=== PATIENT | female | born 1955 | race Caucasian/White ===

== ENCOUNTER 2017-01-26 05:32 | Emergency (ER) | payer OTHER ==
[2017-01-26 05:58] LABS: BILIRUBIN,URINE NEGATIVE (NEGATIVE)
[2017-01-26 06:00] LABS: UA w/ MICROSCOPIC CHARGE YES
[2017-01-26 06:05] LABS: BASOPHILS % (AUTO) 0.5 %; EOSINOPHILS % (AUTO) 0.8 %; HCT - HEMATOCRIT 39.6 % (37.0-47.0); HGB - HEMOGLOBIN 13.1 g/dL (12.0-16.0); LYMPHOCYTES # (AUTO) 1.6 10^3/uL (1.5-3.5); LYMPHOCYTES % (AUTO) 25.2 %; MEAN CORPUSCULAR HEMOGLOBIN 31.6 pg (27.0-31.0); MEAN CORPUSCULAR HGB CONC 33.2 g/dL (32.0-36.0); MEAN CORPUSCULAR VOLUME 95.3 fL (81.0-99.0); MONOCYTES # (AUTO) 0.6 10^3/uL (0.0-1.0); MONOCYTES % (AUTO) 9.6 %; NEUTROPHILS # (AUTO) 4.1 10^3/uL (1.5-6.6); NEUTROPHILS % (AUTO) 63.9 %; RED BLOOD COUNT 4.16 10^6/uL (4.20-5.40); RED CELL DISTRIBUTION WIDTH 14.4 % (12.0-15.0); UNCORRECTED WHITE BLOOD COUNT 6.4 x10^3/uL; WHITE BLOOD COUNT 6.4 x10^3/uL (4.8-10.8)
[2017-01-26 06:07] LABS: UR CULTURE IF IND NOT INDICATED; WBC,URINE 0-3 /HPF (0-5)
[2017-01-26] MEDS ORDERED: MORPHINE 2 MG/ML SYRINGE IVP STA ×2 (06:12→06:31)
[2017-01-26 06:13] LABS: ALBUMIN/GLOBULIN RATIO 1.6 (1.0-2.2); BILIRUBIN,TOTAL 0.5 mg/dL (0.2-1.0); CALCIUM 9.4 mg/dL (8.5-10.3); CREATININE 0.8 mg/dL (0.4-1.0); POTASSIUM 4.2 mmol/L (3.5-5.0); TOTAL PROTEIN 6.2 g/dL (6.7-8.2)
[2017-01-26] MEDS ORDERED: ONDANSETRON 4 MG/2 ML VIAL IVP STA ×5 (06:29→14:27)
[2017-01-26] MEDS ORDERED: SODIUM CHLORIDE 0.9% 1,000 ML IV ONE ×4 (06:29→19:16)
[2017-01-26] MEDS ORDERED: MORPHINE 2 MG/ML SYRINGE ONE (06:40)
[2017-01-26] MEDS ORDERED: ONDANSETRON 4 MG/2 ML VIAL ONE ×5 (06:40→14:28)
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
[2017-01-26] MEDS ORDERED: HYDROmorphone 1 MG/ML SYRINGE IVP STA ×4 (07:16→14:26)
[2017-01-26] MEDS ORDERED: HYDROmorphone 1 MG/ML SYRINGE ONE ×4 (07:32→14:28)
--- NOTE | 2017-01-26 08:29 | Ultrasound Preliminary Report ---
Exam: US Abdomen Limited IMPRESSION: 1. Cholelithiasis. 2. Borderline gallbladder wall thickening without pericholecystic fluid. Negative sonographic Taylor' s sign but equivocal as patient is on pain medication. Early cholecystitis possible. 3. Fatty liver infiltration. [facility] SITE ID: [id number]
--- NOTE | 2017-01-26 08:32 | Ultrasound Report ---
EXAM: ABDOMEN ULTRASOUND LIMITED, RUQ EXAM DATE: 01/26/2017 08:05 AM. CLINICAL HISTORY: Epigastric pain/hx of gallstones. COMPARISON: Prior ultrasound 02/17/2016. TECHNIQUE: Real-time scanning was performed with static images obtained. FINDINGS: Liver: Increased in echogenicity. No focal hepatic lesion. 18.5 cm. Main portal vein flow: Hepatopeta l. Gallbladder: Multiple shadowing gallstones measuring up to 1.9 cm diameter. Borderline wall thickenin g 3.1 mm. No pericholecystic fluid. Patient is not tender but medicated. Biliary System: CBD measures 8.2 mm. No intrahepatic or extrahepatic ductal dilatation. Other: None. IMPRESSION: 1. Cholelithiasis. 2. Borderline gallbladder wall thickening without pericholecystic fluid. Negative sonographic Taylor' s sign but equivocal as patient is on pain medication. Early cholecystitis possible. 3. Fatty liver infiltration. [facility] Referring Provider Line: [phone] SITE ID: [id number]
[2017-01-26] MEDS ORDERED: cefOXitin 1 GM in SODIUM CHLORIDE 0.9% MINIBAG 100 ML IV STA ×2 (09:26→18:09)
--- NOTE | 2017-01-26 09:26 | ED Physician Documentation ---
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 HEENT: Cataracts - Present Medications Home Medications: Ambulatory Orders Medication Instructions Recorded Confirmed Multivitamin [Theragran] 1 tab PO DAILY 02/17/16 01/26/17 Ondansetron [Zofran] 4 - 8 mg ORAL DAILY PRN 02/17/16 01/26/17 Aspirin [Adult Low Dose Aspirin EC] 81 mg PO DAILY 01/26/17 01/26/17 Lenalidomide [Revlimid] 10 mg PO DAILY 01/26/17 01/26/17 Potassium Chloride 20 meq PO DAILY 01/26/17 01/26/17 Sulfamethoxazole/Trimethoprim 1 tab PO DAILY 01/26/17 01/26/17 [Sulfamethoxazole-Tmp Ds Tablet] Valacyclovir HCl [Valacyclovir] 500 mg PO BID 01/26/17 01/26/17 - Allergies Allergies/Adverse Reactions: Allergies Allergy/AdvReac Type Severity Reaction Status Date / Time No Known Drug Allergies Allergy Verified 01/26/17 05:38 - Social History Does the pt smoke?: No Smoking Status: Never smoker Does the pt drink ETOH?: No Does the pt have substance abuse?: No - Immunizations Immunizations are current?: Yes - POLST Patient has POLST: No Results - Vitals Vitals: Vital Signs - 24 hr 01/26/17 01/26/17 01/26/17 05:35 06:09 07:02 Temperature 36.8 C Heart Rate 72 68 57 L Respiratory 20 18 18 Rate Blood Pressure 185/80 H 159/87 H 142/66 H O2 Saturation 100 96 97 01/26/17 01/26/17 01/26/17 10:34 12:35 12:50 Temperature Heart Rate 65 74 77 Respiratory 12 19 20 Rate Blood Pressure 153/79 H 139/89 H 141/78 H O2 Saturation 96 97 100 01/26/17 01/26/17 01/26/17 14:35 15:27 17:20 Temperature Heart Rate 88 64 72 Respiratory 20 12 18 Rate Blood Pressure 142/73 H 146/71 H 139/77 H O2 Saturation 95 99 98 01/26/17 01/26/17 01/26/17 18:25 19:16 19:23 Temperature 37.6 C H 36.7 C Heart Rate 93 76 Respiratory 20 18 Rate Blood Pressure 130/72 138/69 H O2 Saturation 98 99 01/26/17 20:29 Temperature Heart Rate 84 Respiratory 18 Rate Blood Pressure 125/62 O2 Saturation 97 Oxygen O2 Source Room air - Tele (time rhythm occurred) 1617 Telemetry / rhythm strip: Other (no prolonged QT from zofran) - Labs Labs: Laboratory Tests 01/26/17 01/26/17 01/26/17 05:50 05:50 05:52 WBC 6.4 RBC 4.16 L Hgb 13.1 Hct 39.6 MCV 95.3 MCH 31.6 H MCHC 33.2 RDW 14.4 Plt Count 202 MPV 7.0 L Neut # 4.1 Lymph # 1.6 [place] # 0.6 Eos # 0.0 Baso # 0.0 Absolute Nucleated RBC 0.00 Nucleated RBCs 0.0 Sodium Potassium Chloride Carbon Dioxide Anion Gap BUN Creatinine Estimated GFR (MDRD) Glucose Calcium Total Bilirubin AST ALT Alkaline Phosphatase Troponin I < 0.04 Total Protein Albumin Globulin Albumin/Globulin Ratio Lipase Urine Color YELLOW Urine Clarity CLEAR Urine pH 6.0 Ur Specific [place] 1.025 Urine Protein NEGATIVE Urine Glucose (UA) NEGATIVE Urine Ketones NEGATIVE Urine Occult Blood MODERATE H Urine Nitrite NEGATIVE Urine Bilirubin NEGATIVE Urine Urobilinogen 0.2 (NORMAL) Ur Leukocyte Esterase NEGATIVE Urine RBC 6-10 H Urine WBC 0-3 Ur Squamous Epith Cells FEW Squamous Urine Bacteria Rare Ur Microscopic Review INDICATED Urine Culture Comments NOT INDICATED 01/26/17 05:52 WBC RBC Hgb Hct MCV MCH MCHC RDW Plt Count MPV Neut # Lymph # [place] # Eos # Baso # Absolute Nucleated RBC Nucleated RBCs Sodium 140 Potassium 4.2 Chloride 108 Carbon Dioxide 24 Anion Gap 8.0 BUN 17 Creatinine 0.8 Estimated GFR (MDRD) 73 L Glucose 133 H Calcium 9.4 Total Bilirubin 0.5 AST 29 ALT 32 Alkaline Phosphatase 110 Troponin I Total Protein 6.2 L Albumin 3.8 Globulin 2.4 Albumin/Globulin Ratio 1.6 Lipase 34 Urine Color Urine Clarity Urine pH Ur Specific [place] Urine Protein Urine Glucose (UA) Urine Ketones Urine Occult Blood Urine Nitrite Urine Bilirubin Urine Urobilinogen Ur Leukocyte Esterase Urine RBC Urine WBC Ur Squamous Epith Cells Urine Bacteria Ur Microscopic Review Urine Culture Comments PD MEDICAL DECISION MAKING - ED course ED course: assumed care from naturalization examiner 730 AM, 61 female seen by naturalization examiner approx 5 m s/p stem cell transplant for multiple myeloma immunocompromised s/p transplant and on prophylactic bactrim and valtrex as well as revlimid - not neutropenic known hx gallstones to ER with epigastric pain nausea - had vomiting in ER not [employer]IST no fever labs normal and sono pending and turnover labs nl LFTs and WBC (but immunocompromised) sono shows early cholecystitis pt still having persistent RUQ pain and nausea, on my exam + murphys started antibiotics cefoxitin, pain controlled with dilaudid, got fluid bolus now maintenance d/w [facility] and [facility] and they will accept pt in transfer [facility] advised bed would be available at 5 PM at 830 PM still awaiting bed availability - I called [facility] transfer center myself and am advised heme on service is capped for the night and pt cannot be transferred until tomorrow soonest and that is not guaranteed either pt has been given her second dose of cefoxitin, dilaudid and zofran/phenergan for NV, checked QT after several doses zofran and not prolonged, remains stable went to update pt, she is starting to feel better, no sig pain at rest though still cleaner tube with deep palpation do not think continuing to stay in the ER being exposed top other sick patients is in pt best interest either will dc with oral antibiotics and have pt come back to see me at noon tomorrow for a recheck pt is agreeable to this plan she will take her usual daily meds when she gets home Departure - Departure Disposition: Home, Self Care Clinical Impression: Cholecystitis, Stem cells transplant status Condition: Fair Instructions: ED Gallbladder Infec Conf Comments: Take the next dose of augmentin tomorrow morning. Stay on a clear liquid diet overnight May take zofran 4 mg every 6 hours if needed for vomiting. Recommend no strong pain medications which might mask worsening symptoms Please come back and see me in the ER tomorrow at noon for a recheck Return to the ER sooner if worse in any way
[2017-01-26] MEDS ORDERED: PROMETHAZINE INJ 12.5 MG in SODIUM CHLORIDE 0.9% 50 ML IV STA (16:04)
[2017-01-26] MEDS ORDERED: PROMETHAZINE 25 MG/1 ML VIAL ONE (16:15)
[2017-01-26] MEDS ORDERED: AMOX/CLAV 875 MG/125 MG TABLET PO STA (20:58)
[2017-01-26] MEDS ORDERED: ONDANSETRON ODT 4 MG Prepack 2 TL PRN (21:09)
[2017-01-26] MEDS ORDERED: ONDANSETRON ODT 4 MG Prepack 2 TL ONE (21:12)
[2017-01-26] MEDS ORDERED: AMOX/CLAV 875 MG/125 MG TABLET PO ONE (21:12)
[2017-01-26 21:18] VITALS: BP 136/75
[2017-01-27] MEDS ORDERED: cefOXitin 1 GM in SODIUM CHLORIDE 0.9% MINIBAG 100 ML IV SCH (02:00)
== END 2017-01-26 21:46 | disposition home or self-care (01) ==
LOC: ED 05:32
DX: K81.9 Cholecystitis, unspecified (principal); C90.00 Multiple myeloma not having achieved remission; Z79.82 Long term (current) use of aspirin
CPT/HCPCS: 36415; 76705; 80053; 81001; 83690; 84484; 85025; 96374; 96375; 96376; 99285; A9270; J1170; 81003; 87086

== ENCOUNTER 2017-01-27 12:02 | Inpatient (IN) | payer OTHER ==
[2017-01-27] MEDS ORDERED: cefOXitin 1 GM in SODIUM CHLORIDE 0.9% MINIBAG 100 ML IV STA (12:49)
[2017-01-27] MEDS ORDERED: SODIUM CHLORIDE 0.9% 1,000 ML IV ONE (12:49)
[2017-01-27] MEDS ORDERED: ACETAMINOPHEN 1,000 MG/100 ML 100 ML IV STA (12:50)
[2017-01-27] MEDS ORDERED: ACETAMINOPHEN 1,000 MG/100 ML 100 ML IV ONE (13:12)
[2017-01-27 13:36] LABS: BASOPHILS % (AUTO) 0.2 %; EOSINOPHILS % (AUTO) 0.2 %; HCT - HEMATOCRIT 34.6 % (37.0-47.0); HGB - HEMOGLOBIN 11.8 g/dL (12.0-16.0); LYMPHOCYTES # (AUTO) 1.5 10^3/uL (1.5-3.5); LYMPHOCYTES % (AUTO) 18.2 %; MEAN CORPUSCULAR VOLUME 94.2 fL (81.0-99.0); MONOCYTES # (AUTO) 1.3 10^3/uL (0.0-1.0); MONOCYTES % (AUTO) 15.9 %; NEUTROPHILS # (AUTO) 5.3 10^3/uL (1.5-6.6); NEUTROPHILS % (AUTO) 65.5 %; RED BLOOD COUNT 3.67 10^6/uL (4.20-5.40); RED CELL DISTRIBUTION WIDTH 14.2 % (12.0-15.0); UNCORRECTED WHITE BLOOD COUNT 8.1 x10^3/uL; WHITE BLOOD COUNT 8.1 x10^3/uL (4.8-10.8)
[2017-01-27 13:37] LABS: BILIRUBIN,URINE NEGATIVE (NEGATIVE)
[2017-01-27 13:38] LABS: UA w/ MICROSCOPIC CHARGE YES
--- NOTE | 2017-01-27 13:47 | ED Physician Documentation ---
History of Present Illness - Stated complaint Stated Complaint: RE-EVAL - Chief complaint Chief Complaint: Fever - Additonal information Additional information: hx from pt pt seen by me yesterday and returns today for recheck as requested 61 f, 5 m s/p stem cell transplant for multiple myeloma, not on anti-rejection meds but still with suppressed immune system and on prophylactic bactrin and valtrex as well as revlimid known gallstones night of 01/25 after having potato salad for lunch and pizza for dinner she developed RUQ pain so came to ER labs were nl sono showed GB wall thickening s pericholcystic fluid and nl ducts pt was given cefoxitin IV due to pt being a stem cell transplant pt and immunocompromised attempted to transfer pt to [facility], [facility] oncology team accepted the pt but no bed was available and then the service "capped" so the pt could not be transferred a surgical infection in a transplant pt would not typically be admitted to this [facility] pt was feeling better after IVF and 2 doses of q8hr cefoxitin d/w pt remaining in the ER indefinitely vs going home and returning to see me for a recheck in approx 12 hr and we felt she would be less likely to be exposed to other infections at home than in the ER and so agreed on plan to dc for remainder of night and then return to see me, pt given augmentin q12 to take at home which she did she returns as planned and has gotten worse, abd pain is better but not gone, she is less nauseated but she had a fever of 103+ and generally feels ill per transfer [facility] still has no inpt beds for this pt pt and family have been in contact with Dr Kuldeep Toro cell , pager and he suggests she be transferred to their ([facility] and / or [facility]) ER Review of Systems Constitutional: reports: Fever, Chills, Myalgias Cardiac: denies: Chest pain / pressure Respiratory: denies: Dyspnea, Cough GI: reports: Abdominal Pain, Nausea, Diarrhea (X 1 this Am). 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 HEENT: Cataracts - Present Medications Home Medications: Ambulatory Orders Medication Instructions Recorded Confirmed Multivitamin [Theragran] 1 tab PO DAILY 02/17/16 01/27/17 Ondansetron [Zofran] 4 - 8 mg ORAL DAILY PRN 02/17/16 01/27/17 Aspirin [Adult Low Dose Aspirin EC] 81 mg PO DAILY 01/26/17 01/27/17 Lenalidomide [Revlimid] 10 mg PO DAILY 01/26/17 01/27/17 Potassium Chloride 20 meq PO DAILYWM 01/26/17 01/27/17 Valacyclovir HCl [Valacyclovir] 500 mg PO BID 01/26/17 01/27/17 Sulfamethoxazole/Trimethoprim 1 tab PO DAILY 01/27/17 01/27/17 [Sulfamethoxazole-Tmp Ss Tablet] - Allergies Allergies/Adverse Reactions: Allergies Allergy/AdvReac Type Severity Reaction Status Date / Time No Known Drug Allergies Allergy Verified 01/26/17 05:38 - Social History Does the pt smoke?: No Smoking Status: Never smoker Does the pt drink ETOH?: No Does the pt have substance abuse?: No - Immunizations Immunizations are current?: Yes - POLST Patient has POLST: No PD ED PE NORMAL - Vitals Vital signs reviewed: Yes - General General: Alert and oriented X 3 - HEENT HEENT: PERRL - Neck Neck: Supple, no meningeal sign - Cardiac Cardiac: RRR - Respiratory Respiratory: No respiratory distress, Clear bilaterally - Abdomen Abdomen: Soft, Other (TTP RUQ + murphys) - Derm Derm: Normal color - Extremities Extremities: No deformity - Neuro Neuro: Alert and oriented X 3 - Psych Psych: Normal mood Results - Vitals Vitals: Vital Signs - 24 hr 01/27/17 01/27/17 01/27/17 12:05 12:26 14:23 Temperature 37.5 C 37.8 C H 37.5 C Heart Rate 92 89 Respiratory 16 18 Rate Blood Pressure 123/71 123/54 L O2 Saturation 96 96 Oxygen O2 Source Room air - Labs Labs: Laboratory Tests 01/27/17 01/27/17 01/27/17 13:11 13:11 13:11 WBC 8.1 RBC 3.67 L Hgb 11.8 L Hct 34.6 L MCV 94.2 MCH 32.0 H MCHC 34.0 RDW 14.2 Plt Count 180 MPV 7.0 L Neut # 5.3 Lymph # 1.5 [place] # 1.3 H Eos # 0.0 Baso # 0.0 Absolute Nucleated RBC 0.00 Nucleated RBCs 0.0 Sodium 135 Potassium 3.4 L Chloride 104 Carbon Dioxide 25 Anion Gap 6.0 BUN 13 Creatinine 1.0 Estimated GFR (MDRD) 56 L Glucose 111 H Lactic Acid 1.1 Calcium 8.9 Total Bilirubin 0.6 AST 25 ALT 28 Alkaline Phosphatase 88 Total Protein 5.9 L Albumin 3.5 Globulin 2.4 Albumin/Globulin Ratio 1.5 Lipase 25 Urine Color Urine Clarity Urine pH Ur Specific [place] Urine Protein Urine Glucose (UA) Urine Ketones Urine Occult Blood Urine Nitrite Urine Bilirubin Urine Urobilinogen Ur Leukocyte Esterase Urine RBC Urine WBC Ur Squamous Epith Cells Urine Bacteria Ur Microscopic Review Urine Culture Comments 01/27/17 13:30 WBC RBC Hgb Hct MCV MCH MCHC RDW Plt Count MPV Neut # Lymph # [place] # Eos # Baso # Absolute Nucleated RBC Nucleated RBCs Sodium Potassium Chloride Carbon Dioxide Anion Gap BUN Creatinine Estimated GFR (MDRD) Glucose Lactic Acid Calcium Total Bilirubin AST ALT Alkaline Phosphatase Total Protein Albumin Globulin Albumin/Globulin Ratio Lipase Urine Color YELLOW Urine Clarity CLEAR Urine pH 7.0 Ur Specific [place] 1.015 Urine Protein NEGATIVE Urine Glucose (UA) NEGATIVE Urine Ketones NEGATIVE Urine Occult Blood MODERATE H Urine Nitrite NEGATIVE Urine Bilirubin NEGATIVE Urine Urobilinogen 0.2 (NORMAL) Ur Leukocyte Esterase NEGATIVE Urine RBC 0-5 Urine WBC 0-3 Ur Squamous Epith Cells RARE Squamous Urine Bacteria Rare Ur Microscopic Review INDICATED Urine Culture Comments NOT INDICATED PD MEDICAL DECISION MAKING - ED course ED course: spoke to [facility] transfer center [facility] Flores and onc air support control officer Dr Belle and there are still no beds at [facility] and no anticipation of beds becoming available and does not feel it would be appropriate to transfer pt to their ER either and recommend that pt be admitted to for ongoing IVF and IV antibiotics and monitoring and promise that the pt will remain in line to get a bed when available, oncology advises that she had an autologous transplant and is not really immunosupressed and the prophylactic bactrim and valtrex and standard for a year and not specific to this pt spoke to hospitalist Dr Nunn and aurgeon Dr Phillips and they agree to admit Departure - Departure Disposition: 66 [facility] DC/Xfer Clinical Impression: Stem cells transplant status, Cholecystitis Condition: Fair Discharge Date/Time: 01/27/17 16:08
[2017-01-27 14:00] LABS: UR CULTURE IF IND NOT INDICATED; WBC,URINE 0-3 /HPF (0-5)
[2017-01-27 14:26] LABS: ALBUMIN/GLOBULIN RATIO 1.5 (1.0-2.2); BILIRUBIN,TOTAL 0.6 mg/dL (0.2-1.0); CALCIUM 8.9 mg/dL (8.5-10.3); POTASSIUM 3.4 mmol/L (3.5-5.0); TOTAL PROTEIN 5.9 g/dL (6.7-8.2)
[2017-01-27] MEDS ORDERED: HYDROmorphone 1 MG/ML SYRINGE IVP PRN (14:55)
[2017-01-27] MEDS ORDERED: SODIUM CHLORIDE FLUSH 0.9% 10 ML SYRINGE IVP PRN (14:55)
[2017-01-27] MEDS ORDERED: ONDANSETRON 4 MG/2 ML VIAL IVP PRN (14:55)
[2017-01-27] MEDS ORDERED: NS W/20 MEQ KCL 1,000 ML IV SCH (17:00)
[2017-01-27 19:56] VITALS: BP 128/76
[2017-01-27] MEDS ORDERED: valACYclovir 500 MG TABLET PO SCH (21:00)
[2017-01-27] MEDS ORDERED: CEFEPIME 2 GM in SODIUM CHLORIDE 0.9% MINIBAG 100 ML IV SCH (21:00)
[2017-01-27] MEDS ORDERED: SODIUM CHLORIDE FLUSH 0.9% 10 ML SYRINGE IVP SCH (22:00)
--- NOTE | 2017-01-28 07:45 | HISTORY & PHYSICAL EXAMINATION ---
DATE OF ADMISSION: 01/27/2017 PRIMARY CARE PROVIDER: Simeon Sheppard MD. CHIEF COMPLAINT: Abdominal pain pain with fevers. IDENTIFYING INFORMATION: The patient is the primary source of history. Her , Gorge, is present, and gives some additional information. They appear cogent, consistent and thorough. Additional information is obtained from the handoff from Dr. Jones, the emergency department physician who has seen this patient twice, as well as the personal review of past medical records and data collected during this visit which are summarized below. HISTORY OF PRESENT ILLNESS: The patient had some abdominal pain the day before she came in, went through the night and five in the morning according to her she said "let's go to the hospital." The patient had known cholelithiasis. She was seen in the hospital emergency department, evaluated by Dr. Jones and found to have acute cholecystitis. The patient was given cefoxitin twice while waiting for a transfer to which did not occur. She was sent home and brought back today, had fevers last night and was reevaluated today. Says she does not have the pain that she had yesterday, but she had really bad fevers up to 103.5 in the emergency department. REVIEW OF SYSTEMS: She has had fevers, chills, muscle aches. She is not having any chest pain, no shortness of breath, no cough, sore throat negative. She has had nausea and diarrhea. No vomiting. No frequency, urgency, or dysuria. The rest of the complete review of systems is negative. PAST MEDICAL HISTORY AND SURGICAL HISTORY: She has had pneumonia in the past. She has also had depression and she had multiple myeloma diagnosed at [facility] since that. She has had degenerative joint disease, lumbar spine and back surgery in July of 2005. The patient has mild tricuspid regurgitation, mild mitral regurgitation, and also mild pulmonary hypertension. She has had cataract surgery and hysterectomy. PERSONAL SOCIAL HISTORY: She has been 3 times, does have children with her current of 30 years. The patient never smoked, drank alcohol very rarely and no illicit drugs. FAMILY HISTORY: Positive for mother of breast cancer, father from old age. There is diabetes in the family. ALLERGIES: NO DRUG ALLERGIES. MEDICATIONS: 1. Multivitamin. 2. Zofran. 3. Aspirin 81 mg daily. 4. Revlimid. 5. Potassium 20 meq daily. 6. Septra DS 1 a day. 7. Valacyclovir 500 mg twice a day. PHYSICAL EXAMINATION: VITAL SIGNS: She has a temperature of 37.8, pulse 89, respirations 18. Her blood pressure is 123/54, O2 saturation is 96% on room air. The patient appears stated age in no acute distress at this time. HEENT: Eyes: EOMs within normal limits. PERRLA, nonicteric. Mouth and throat: Dry mucous membranes. A lot of dental work. No signs of thrush or other pathology in the mouth, tongue, oropharynx. NECK: The skin is sweaty, but no lymphadenopathy. No thyromegaly. No bruits. No JVD. CHEST: Chest wall nontender, symmetric. No breast exam done. HEART: Sinus rhythm. A 1/6 murmur left sternal border radiating in and out to the apex. LUNGS: Clear. Good air movement anterior and posterior. ABDOMEN: Nontender, bowel sounds are present. No hepatosplenomegaly appreciated. There is a thick abdominal wall. RECTAL/GENITAL: None done. EXTREMITIES: Vascular exam: She has equal pulses 1+ down to the dorsal pedis. No edema. No cyanosis. SKIN: No suspicious lesions or dermatitis. NEURO: Cognition intact. Cranial nerves intact. Motor intact. DIAGNOSTICS: White count 8.6, 11.8 and 34. The patient's platelets are 180. Lactate is 1.1. She has negative urine with a specific gravity of 1.015. The patient's chemistry panel, white count was 6.4 with 13 and 39 hemoglobin and hematocrit. Her sodium today is 135, potassium 3.5, chloride 104, CO2 25, BUN 13 , creatinine 1.0, glucose is 111. Lactate is 1.1. Bilirubin 0.6, normal liver enzymes. Lipase is normal at 25. The patient's ultrasound from 01/26 showed the gallstones. Impression was: 1. Cholelithiasis. 2. Borderline gallbladder wall thickening without pericholecystic fluid. Negative sonographic Taylor sign, but equivocal as patient had Dilaudid. Early cholecystitis possible. 3. Fatty liver and infiltration. SUMMARY: This is a 61-year-old female who is 142 days post stem cell transplant for multiple myeloma who had degenerative spine disease and depression. The patient was found in the emergency department yesterday to have cholecystitis. Given that she was a stem cell transplant and was immunocompromised, she was to be transferred to [facility], but they had no beds, got antibiotics yesterday and discharged home and returns today with fevers, less abdominal pain, however. The patient is now admitted to the hospital for acute cholecystitis. DIAGNOSES 1. Cholecystitis. 2. Multiple myeloma in remission. Status post stem cell. 3. Immunocompromise from stem cell transplant. 4. Degenerative disk disease of spine. 5. Depression. DISCUSSION AND DECISION MAKIN. Acute cholecystitis. The patient will be started on antibiotics, n.p.o. for the present time and then start with clear fluids. The patient will be started on cefepime. 2. The multiple myeloma in remission, she will be continued on her immunosuppressive drugs. This patient also will be placed in a single room. 3. Immunosuppression. See #2. 4. Degenerative disk disease status post laminectomy. She will be given pain medicine as needed. 5. For depression she will have her medication for depression restarted if needed. HOSPITAL ISSUES: 1. CODE STATUS: SHE IS FULL CODE. 2. VTE: She is not to take anything that would promote bleeding so will use SCDs instead of Lovenox or heparin. 3. DIET: N.p.o. at the present time, advanced slowly. 4. ACTIVITY: Up ad harry. 5. TUBES AND LINES: She will just have the peripheral IV presently. 6. HOSPITAL STATUS: Given the seriousness of the infection with the comorbidity she is immune compromised, she needs at least 2 nights to determine if she is safe to be discharged with therapeutic and possible diagnostic interventions. 7. Length of stay is estimated at 3 nights. 8. DISPOSITION: Expected to either be home after surgery here or at . JOB #: [id number] EXT JOB #:[id number] OSEAS
[2017-01-28] MEDS ORDERED: POLYETHYLENE GLYCOL 3350 17 GM PACKET PO SCH (09:00)
[2017-01-28] MEDS ORDERED: MULTIVITAMIN TABLET PO SCH (09:00)
[2017-01-28] MEDS ORDERED: NON FORMULARY MED (Lenalidomide [Revlimid] 10 MG) PO SCH (09:00)
[2017-01-28] MEDS ORDERED: SULFAMETH/TRIMETH DS 800/160 MG TABLET PO SCH (09:00)
--- NOTE | 2017-01-29 15:36 | CONSULTATION NOTE ---
DATE OF CONSULTATION: 01/27/2017 00:00:00 REASON FOR CONSULTATION: Biliary colic with possible acute cholecystitis. HISTORY OF PRESENT ILLNESS: This is a 61-year-old female who presented to the emergency department yesterday with right upper quadrant pain. An ultrasound was performed which demonstrated cholelithiasis with mild gallbladder wall thickening without any pericholecystic fluid. Her white blood cell count was noted to be normal, as well as her LFT's. She was afebrile at that time. She has a history of multiple myeloma diagnosed approximately 1 year ago. She underwent chemotherapy and subsequently underwent a bone marrow transplant 5 months ago. She is followed at the [facility]. She continues to take Revlimid once a month and her last dose was about 6 days ago. She also takes acyclovir and Bactrim prophylactically. On evaluation in the emergency department attempts were made to transfer the patient to the [facility], however, no beds were available. The patient's pain subsided and she was given antibiotics. She was instructed that she may go home, but should return should she have recurrence of symptoms. The patient was discharged home and she developed a temperature at home reportedly of 103 and returned to the emergency department. Upon evaluation in the emergency department she was noted to have a low grade fever and labs again revealed a normal white blood cell count with normal LFT's. She denies any recurrence of her right upper quadrant pain. She has not eaten for the past day and a half. Currently she states that she is completely pain free and she is afebrile. PAST MEDICAL HISTORY: Significant for multiple myeloma status post bone marrow transplant. PAST SURGICAL HISTORY: None. SOCIAL HISTORY: The patient is , her is at the bedside. She is a nonsmoker. HOME MEDICATIONS: 1. Valacyclovir 500 mg p.o. twice daily. 2. Bactrim double strength 1 tablet daily. 3. Potassium 20 meq p.o. daily. 4. Revlimid 10 mg p.o. daily for 21 days then off for 7 days. 5. Aspirin 81 mg p.o. daily. ALLERGIES TO MEDICATIONS; NO KNOWN DRUG ALLERGIES. PHYSICAL EXAM: GENERAL: The patient is awake, alert and oriented x3 in no acute distress. BMI is 40. CARDIOVASCULAR: Regular rate and rhythm. CHEST: Clear to auscultation bilaterally with no rhonchi or wheezing. ABDOMEN: Soft and nondistended and is nontender to palpation. She has very mild feeling of discomfort with deep palpation in the right upper quadrant, and again there is no guarding. EXTREMITIES: Well perfused without edema. LAB VALUES: White blood cell count 8.1, hemoglobin 11.8, hematocrit 34.6, platelets 180, neutrophils 5.3, sodium 135, potassium 3.4, chloride 104, bicarb 25, BUN 13, creatinine 1.0, total bilirubin 0.6, AST 25, ALT 28, alkaline phosphatase 88, lipase 25. ASSESSMENT: This is a 61-year-old female with biliary colic and possible acute cholecystitis. PLAN: As there are no beds available at the [facility] the patient should be monitored for any signs of ensuing infection given her immunocompromised state. She will be admitted to the medical service and placed on antibiotics with serial abdominal exams. She may have clear liquids and her diet may be advanced as tolerated. If she develops recurrent abdominal pain or signs compatible with acute cholecystitis, a laparoscopic cholecystectomy may be warranted. However, a discussion would need to be had with her oncologist at the [facility] and she may require transfer for this depending on that discussion. All of this was discussed with the patient. JOB #: [id number] EXT JOB #:[id number] MTDVishal
--- NOTE | 2017-01-31 19:47 | DISCHARGE SUMMARY ---
DATE OF ADMISSION: 01/27/2017 DATE OF DISCHARGE: 01/27/2017 PRIMARY CARE PROVIDER: Simeon Sheppard MD. ADMISSION DIAGNOSES: 1. Cholecystitis, acute. 2. Multiple myeloma in remission status post stem cell transplant. 3. Immunocompromised from stem cell transplant. 4. Degenerative disk disease of the spine. 5. Depression. DISCHARGE DIAGNOSES: 1. Acute cholecystitis. 2. Multiple myeloma in remission, status post stem cell transplant. 3. Immunocompromised from stem cell transplant, 142 days. 4. Degenerative disk disease of the spine status post laminectomy. 5. Depression. CONSULTATIONS: None. SPECIAL PROCEDURES: None on this admission. Previous emergency department visit patient had an ultras ound on 01/26 that showed gallstones. Impression was: 1) cholelithiasis; 2) borderline gallbladder wa ll thickening without pericholecystic fluid. Negative sonographic Taylor sign, but equivocal as the p atient had Dilaudid IV, and early cholecystitis possible. 3) Fatty liver infiltration. The initial presentation, hospital plan is well described in the History and Physical. See copy of sa hi. SUMMARY: This is a 61-year-old female who is 142 days post stem cell transplant for multiple myeloma who also had degenerative spine disease and depression. The patient was found in the emergency depart ment yesterday to have cholecystitis. Given that she was stem cell transplant and immunocompromised s he was to be transferred to the [facility]. However, they had no beds and she got antib iotics yesterday, given cefepime 2 different doses and discharged home. She returns today with fever, less abdominal pain, however. The patient was now admitted to the hospital for acute cholecystitis. The patient only stayed for 1 hour and then a bed became available and arrangements were made for her to go by ambulance and transfer. The patient was discharged without incident, had no untoward effect s or decompensation while in the hospital. The patient was started on cefepime in the emergency depar tment. The accepting physician was Dr. Mendy Chinchilla from the Oncology team at the [facility]. TIME SPENT IN DISCHARGE: Time spent in discharge process was less than 30 minutes. JOB #: [id number] EXT JOB #:[id number]
--- NOTE | 2017-02-01 07:32 | DISCHARGE SUMMARY ---
DATE OF ADMISSION: 01/27/2017 DATE OF DISCHARGE: 01/27/2017 PRIMARY CARE PROVIDER: Asif Knox MD. ADMISSION DIAGNOSES: 1. Cholecystitis. 2. Multiple myeloma in remission, status post stem cell transplant. 3. Immunocompromised from stem cell transplant. 4. Degenerative disk disease of the spine. 5. Depression. The patient only here for an hour and a half, she was discharged with the same diagnoses. SUMMARY: This is a 61-year-old female who was 142 days post stem cell transplant for multiple myeloma , also had degenerative spine disease and depression. The patient was found in the emergency room yes terday to have cholecystitis. Given she was a stem cell transplant and immunocompromised, she was to be transferred to the [facility]. However, they had no beds. She got antibiotics yester day and discharged home and returns today with fever, abdominal pain. However, the patient is now adm itted to the hospital for acute cholecystitis. The patient again was here for an hour and the [facility] called and accepted patient in transfer, allan kelley was made. The patient left in satisfactory condition. JOB #: [id number] EXT JOB #:[id number]
== END 2017-01-27 19:45 | disposition short-term general hospital (02) | DRG 445 ==
LOC: ED 12:02 → MS 14:56
PROVIDERS: ADMIT Internal Medicine; ATTEND Internal Medicine
DX: K80.00 Calculus of gallbladder with acute cholecystitis without obstruction (principal); C90.01 Multiple myeloma in remission; Z94.84 Stem cells transplant status; F32.9 Major depressive disorder, single episode, unspecified; I27.2 Other secondary pulmonary hypertension; M51.36 Other intervertebral disc degeneration, lumbar region; Z79.2 Long term (current) use of antibiotics; Z79.899 Other long term (current) drug therapy; Z79.82 Long term (current) use of aspirin; Z92.21 Personal history of antineoplastic chemotherapy; Z90.710 Acquired absence of both cervix and uterus
CPT/HCPCS: 36415; 80053; 81001; 81003; 83605; 83690; 85025; 87040; 87086; 96361; 96374; 96375; 99283; 99284

== ENCOUNTER 2017-01-27 19:53 | Outpatient (CLI) | payer OTHER | END 2017-01-27 19:54 | disposition short-term general hospital (02) | LOC: EMS 19:53 | PROVIDERS: ATTEND Surgery | DX: R10.9 Unspecified abdominal pain (principal) | CPT/HCPCS: A0425; A0428 ==

== ENCOUNTER 2017-08-17 10:17 | Outpatient (CLI) | payer OTHER ==
--- NOTE | 2017-08-18 16:46 | Mammography Report ---
DIGITAL SCREENING MAMMOGRAM: 08/17/2017 CLINICAL INDICATION: A 61-year-old with family history of breast cancer, history of benign biopsy for screening. COMPARISON: 03/2015, 02/2014, 01/2013, 12/2011, 12/2010, 10/2009. TECHNIQUE: Routine CC and MLO projections were obtained of the breasts. FINDINGS: Parenchymal tissue within the breasts is predominantly fatty replaced. There are no dominant masses, suspicious microcalcifications, or secondary signs of malignancy. In comparison to the previous studies, there are no significant changes. IMPRESSION: NO MAMMOGRAPHIC EVIDENCE OF MALIGNANCY. NO SIGNIFICANT INTERVAL CHANGES. RECOMMENDATION: Screening mammography is recommended annually. BIRADS category 1 - negative. STANDARD QUALIFYING STATEMENTS: 1. This examination was reviewed with the aid of Computed-Aided Detection (CAD). 2. A negative or benign imaging report should not delay biopsy if clinically suspicious findings are present. Consider surgical consultation if warranted. More than 5% of cancers are not identified by imaging. 3. Dense breasts may obscure an underlying neoplasm. TD: 08/18/2017 16:44
== END 2017-08-17 10:18 | disposition home or self-care (01) ==
LOC: DI 10:17
PROVIDERS: ATTEND Family Medicine
DX: Z12.31 Encounter for screening mammogram for malignant neoplasm of breast (principal); Z80.3 Family history of malignant neoplasm of breast
CPT/HCPCS: 77067

== ENCOUNTER 2017-08-23 10:05 | Emergency (ER) | payer OTHER ==
--- NOTE | 2017-08-23 11:28 | ED Physician Documentation ---
History of Present Illness - Stated complaint Stated Complaint: FEVER,CHEST CONGESTION - Chief complaint Chief Complaint: Resp - Additonal information Additional information: hx from pt 61 female 1 yr s/p stem cell transplant does not know her most recent WBC ANC sent to ER by her oncologist for fever cough to get a flu swab pt denies NVD urianry sx no sick contacts Review of Systems Constitutional: reports: Fever, Fatigue Respiratory: reports: Cough GI: denies: Vomiting, Diarrhea : denies: Dysuria Endocrine: denies: Easy bruising / bleeding Immunocompromised: denies: Immunocompromised PD PAST MEDICAL HISTORY - Past Medical History Past Medical History: Yes Cardiovascular: Murmur Respiratory: Pneumonia, Shortness of breath Neuro: None, Other Endocrine/Autoimmune: None GI: None : None HEENT: Other Psych: None Musculoskeletal: None Derm: None - Past Surgical History Past Surgical History: Yes 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 HEENT: Cataracts - Present Medications Home Medications: Ambulatory Orders Medication Instructions Recorded Confirmed Multivitamin [Theragran] 1 tab PO DAILY 02/17/16 01/27/17 Ondansetron [Zofran] 4 - 8 mg ORAL DAILY PRN 02/17/16 01/27/17 Aspirin [Adult Low Dose Aspirin EC] 81 mg PO DAILY 01/26/17 01/27/17 Lenalidomide [Revlimid] 10 mg PO DAILY 01/26/17 01/27/17 Potassium Chloride 20 meq PO DAILYWM 01/26/17 01/27/17 Valacyclovir HCl [Valacyclovir] 500 mg PO BID 01/26/17 01/27/17 Sulfamethoxazole/Trimethoprim 1 tab PO DAILY 01/27/17 01/27/17 [Sulfamethoxazole-Tmp Ss Tablet] Benzonatate [Tessalon] 100 mg PO TID PRN #20 capsule 08/23/17 guaiFENesin/DEXTROMETHORPHAN 10 ml PO Q6H PRN #120 ml 08/23/17 [Robitussin Dm] - Allergies Allergies/Adverse Reactions: Allergies Allergy/AdvReac Type Severity Reaction Status Date / Time No Known Drug Allergies Allergy Verified 01/26/17 05:38 - Social History Does the pt smoke?: No Smoking Status: Never smoker Does the pt drink ETOH?: No Does the pt have substance abuse?: No - Immunizations Immunizations are current?: Yes - POLST Patient has POLST: No PD ED PE NORMAL - Vitals Vital signs reviewed: Yes - HEENT HEENT: Atraumatic - Neck Neck: Supple, no meningeal sign - Cardiac Cardiac: RRR - Respiratory Respiratory: No respiratory distress, Clear bilaterally - Abdomen Abdomen: Soft, Non tender - Derm Derm: Normal color - Neuro Neuro: Alert and oriented X 3 Results - Vitals Vitals: Vital Signs - 24 hr 08/23/17 08/23/17 10:10 11:56 Temperature 36.5 C Heart Rate 85 88 Respiratory 18 18 Rate Blood Pressure 151/75 H 154/88 H O2 Saturation 96 96 Oxygen O2 Source Room air - Labs Labs: Laboratory Tests 08/23/17 10:30 Influenza A (Rapid) Negative Influenza B (Rapid) Negative Influenza Types A,B Ag - - Rads (name of study) CXR Radiology: See rad report (neg) PD MEDICAL DECISION MAKING - ED course ED course: called [facility] - her WBC was 4 and ANC > 2K within last 2 weeks CXR neg flu swab neg likely viral URI will reassure and dc Departure - Departure Disposition: 01 Home, Self Care Clinical Impression: Stem cells transplant status Upper respiratory infection Qualifiers: URI type: unspecified URI Qualified Code(s): J06.9 - Acute upper respiratory infection, unspecified Condition: Good Instructions: ED Viral Syndrome Follow-Up: Asif Knox MD [Primary Care Provider] - Prescriptions: Benzonatate [Tessalon] 100 mg PO TID PRN #20 capsule PRN Reason: to ease cough guaiFENesin/DEXTROMETHORPHAN [Robitussin Dm] 10 ml PO Q6H PRN #120 ml PRN Reason: Cough Comments: The xray did not show pneumonia and your flu swabs were negative for both influenza A and B I called [facility] and your ANC was greater than 2000 so your immune system is not dangerously compromised right now. This is likely a viral respiratory infection and at this time is seems safe to let you go home. Please follow up with your PMD for a recheck if not better by the end of the week And return to the ER if worse
--- NOTE | 2017-08-23 11:52 | XRAY Report ---
EXAM: CHEST RADIOGRAPHY EXAM DATE: 08/23/2017 11:37 AM. CLINICAL HISTORY: Cough fever stem cell transplant. COMPARISON: 02/17/2016 TECHNIQUE: 2 views. FINDINGS: Lungs/Pleura: No focal opacities evident. No pleural effusion. No pneumothorax. Normal volumes. Mediastinum: Heart and mediastinal contours are unremarkable. Other: Mild height loss lower thoracic vertebral bodies. IMPRESSION: Clear lungs. No acute findings. [facility] Referring Provider Line: [phone] SITE ID: [id number]
--- NOTE | 2017-08-23 11:52 | XRAY Preliminary Report ---
Exam: XR CHEST 2 VIEW X-RAY IMPRESSION: Clear lungs. No acute findings. [facility] SITE ID: [id number]
[2017-08-23 11:56] VITALS: BP 154/88
== END 2017-08-23 12:34 | disposition home or self-care (01) ==
LOC: ED 10:05
DX: J06.9 Acute upper respiratory infection, unspecified (principal); Z94.84 Stem cells transplant status; Z79.82 Long term (current) use of aspirin
CPT/HCPCS: 71046; 87275; 87276; 99283

== ENCOUNTER 2018-01-09 08:00 | Outpatient (CLI) | payer OTHER | END 2018-01-09 08:01 | disposition home or self-care (01) | LOC: LAB.R 08:00 | PROVIDERS: ATTEND Obstetrics & Gynecology | DX: N76.0 Acute vaginitis (principal) | CPT/HCPCS: 87480; 87510; 87660 ==

== ENCOUNTER 2018-02-15 11:59 | Emergency (ER) | payer OTHER ==
[2018-02-15] MEDS ORDERED: predniSONE 20 MG TABLET PO STA (12:28)
--- NOTE | 2018-02-15 12:30 | ED Physician Documentation ---
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 She was treated for several months with tapering steroids and resolved from that and has been maintained on Revlimid since then 21 days on, 7 days off. She started her current cycle of Revlimid 3 days ago and started developing itchy rashes all over which to partially respond to Benadryl. She is also had coming and going upper lip angioedema with mild cough and shortness of breath.) Review of Systems Constitutional: denies: Fever, Chills, Fatigue Respiratory: reports: Dyspnea, Cough GI: denies: Abdominal Pain, Nausea, Vomiting Skin: reports: Rash PD PAST MEDICAL HISTORY - Past Medical History Past Medical History: Yes Cardiovascular: Murmur Respiratory: Pneumonia, Shortness of breath Endocrine/Autoimmune: None GI: None : None HEENT: Other Psych: None Musculoskeletal: None Derm: None - Past Surgical History Past Surgical History: Yes Ortho: Other /[employer]ATE: Hysterectomy HEENT: Cataracts - Present Medications Home Medications: Ambulatory Orders Medication Instructions Recorded Confirmed Multivitamin [Theragran] 1 tab PO DAILY 02/17/16 01/27/17 Ondansetron [Zofran] 4 - 8 mg ORAL DAILY PRN 02/17/16 01/27/17 Aspirin [Adult Low Dose Aspirin EC] 81 mg PO DAILY 01/26/17 01/27/17 Lenalidomide [Revlimid] 10 mg PO DAILY 01/26/17 01/27/17 Potassium Chloride 20 meq PO DAILYWM 01/26/17 01/27/17 Valacyclovir HCl [Valacyclovir] 500 mg PO BID 01/26/17 01/27/17 Sulfamethoxazole/Trimethoprim 1 tab PO DAILY 01/27/17 01/27/17 [Sulfamethoxazole-Tmp Ss Tablet] Benzonatate [Tessalon] 100 mg PO TID PRN #20 capsule 08/23/17 guaiFENesin/DEXTROMETHORPHAN 10 ml PO Q6H PRN #120 ml 08/23/17 [Robitussin Dm] hydrOXYzine PAMOATE [Vistaril] 25 mg PO Q6H PRN #15 capsule 02/15/18 predniSONE [Deltasone] 60 mg PO DAILY 5 Days tablet 02/15/18 - Allergies Allergies/Adverse Reactions: Allergies Allergy/AdvReac Type Severity Reaction Status Date / Time No Known Drug Allergies Allergy Verified 01/26/17 05:38 - Social History Does the pt smoke?: No Smoking Status: Never smoker Does the pt drink ETOH?: No Does the pt have substance abuse?: No - Immunizations Immunizations are current?: Yes - POLST Patient has POLST: No PD ED PE NORMAL - Vitals Vital signs reviewed: Yes - General General: Alert and oriented X 3, No acute distress - HEENT HEENT: PERRL, EOMI, Other (Mild upper left lip angioedema, the posterior oropharynx is normal.) - Neck Neck: Supple, no meningeal sign, No bony TTP - Cardiac Cardiac: RRR, No murmur - Respiratory Respiratory: No respiratory distress, Clear bilaterally - Abdomen Abdomen: Normal bowel sounds, Soft, Non tender - Derm Derm: Other (She has hives on the trunk and the flexor surfaces of the arms.) - Extremities Extremities: No edema, No calf tenderness / cord - Neuro Neuro: Alert and oriented X 3, Normal speech Results - Vitals Vitals: Vital Signs - 24 hr 02/15/18 12:09 Temperature 36.4 C L Heart Rate 87 Respiratory 18 Rate Blood Pressure 138/89 H O2 Saturation 98 Oxygen O2 Source Room air PD MEDICAL DECISION MAKING - ED course ED course: I called her oncologist and we discussed the case and he recommended holding the Revlimid for now, doing a short burst of steroids and having her follow-up. - Sepsis Event Vital Signs: Vital Signs - 24 hr 02/15/18 12:09 Temperature 36.4 C L Heart Rate 87 Respiratory 18 Rate Blood Pressure 138/89 H O2 Saturation 98 Oxygen O2 Source Room air Departure - Departure Disposition: 01 Home, Self Care Clinical Impression: Allergic urticaria, Stem cells transplant status Condition: Good Record reviewed to determine appropriate education?: Yes Instructions: ED Allergic Reaction General Other Prescriptions: hydrOXYzine PAMOATE [Vistaril] 25 mg PO Q6H PRN #15 capsule PRN Reason: Itching predniSONE [Deltasone] 60 mg PO DAILY 5 Days tablet Comments: Your blood pressure was elevated today on check into the emergency department. This does not mean that you have hypertension, it is a common phenomenon to come to the emergency department and have elevated blood pressure. I recommend that you see your primary care physician within the week to have it rechecked when you are feeling better. Follow-up with your oncologist at the [facility], hold the Revlimid for now until you touch base with him.
[2018-02-15 12:45] VITALS: BP 129/82
== END 2018-02-15 12:44 | disposition home or self-care (01) ==
LOC: ED 11:59
DX: L50.0 Allergic urticaria (principal); R03.0 Elevated blood-pressure reading, without diagnosis of hypertension; Z94.84 Stem cells transplant status
CPT/HCPCS: 99283; J7512